=== PATIENT | female | born 1935 | race Caucasian/White ===

== ENCOUNTER 2022-05-12 16:04 | Emergency (ER) | payer MEDICARE, BC | END 2022-05-12 17:58 | disposition home or self-care (01) | LOC: JD.ED 16:04 | DX: M79.89 Other specified soft tissue disorders (principal); I10 Essential (primary) hypertension; E03.9 Hypothyroidism, unspecified; Z88.2 Allergy status to sulfonamides; Z79.899 Other long term (current) drug therapy | CPT/HCPCS: 93971-26-LT; 93971-LT; 99283 ==

== ENCOUNTER 2022-08-11 09:32 | Emergency (ER) | payer MEDICARE, BC | END 2022-08-11 12:15 | disposition home or self-care (01) | LOC: JD.ED 09:32 | DX: M16.12 Unilateral primary osteoarthritis, left hip (principal); I10 Essential (primary) hypertension; E11.21 Type 2 diabetes mellitus with diabetic nephropathy; E03.9 Hypothyroidism, unspecified; Z88.5 Allergy status to narcotic agent; Z88.2 Allergy status to sulfonamides; Z88.1 Allergy status to other antibiotic agents; Z79.899 Other long term (current) drug therapy | CPT/HCPCS: 72170; 72170-26; 99283; 99284 ==